=== PATIENT | female | born 1965 | race Caucasian/White ===

== ENCOUNTER 2020-03-28 13:21 | Outpatient (REF) | payer BC, SELFPAY | END 2020-03-28 13:22 | disposition home or self-care (01) | LOC: HO.MANLNP 13:21 | PROVIDERS: PCP Physician Assistant; Visit Provider Physician Assistant | DX: R30.9 Painful micturition, unspecified (principal) | CPT/HCPCS: 87086 ==

== ENCOUNTER 2020-03-29 08:31 | Outpatient (REF) | payer BC, SELFPAY ==
[2020-03-29 11:09] LABS: MANUAL DIFF FLAG NO
[2020-03-29 11:11] LABS: Basophils Percent Auto 0.3 % (0-2); Eosinophils Absolute Auto 0.2 X10*3/uL (0.0-0.4); Eosinophils Percent Auto 2.1 % (0-4); Hematocrit 39.6 % (37-47); Hemoglobin 13.2 g/dl (12.0-16.0); Imm Gran Abs Auto 0.03 X10*3/uL (0.00-0.03); Imm Gran Pct Auto 0.4 % (0.0-0.4); Lymphocytes Absolute Auto 2.2 X10*3/uL (1.2-4.9); Mean Corpuscular HGB Conc 33.3 g/dl (31.0-35.0); Mean Corpuscular Hemoglobin 29.5 pg (27.0-33.0); Mean Corpuscular Volume 88.6 fL (80-98); Monocytes Absolute Auto 0.4 X10*3/uL (0.1-1.2); Monocytes Percent Auto 4.8 % (2-11); Neutrophils Percent Auto 64.4 % (45-73); Platelet Count 238 X10*3/uL (160-400); Red Blood Count 4.47 X10*6/uL (4.20-5.50); Red Cell Distribution Width 12.9 % (11.0-16.0); White Blood Count 7.7 X10*3/uL (4.8-10.8)
[2020-03-29 11:56] LABS: Alanine Aminotransferase 16 U/L (0-31); Albumin Level 4.4 g/dL (3.5-5.0); Alkaline Phosphatase 87 U/L (39-117); Anion Gap 14 (12-20); Aspartate Amino Transferase 13 U/L (5-31); Bilirubin Total 0.5 mg/dL (0.0-1.0); Blood Urea Nitrogen 14 mg/dL (9-16); Calcium 9.3 mg/dL (8.4-10.2); Carbon Dioxide 27 mmol/L (22-29); Chloride 104 mmol/L (96-108); Cholesterol 244 mg/dL; Estimated Glomerular Filt Rate > 60; Glucose Fasting 126 mg/dL (60-99); HDL Cholesterol 45 mg/dL; LDL Cholesterol Calculated 175 mg/dl; Potassium 4.6 mmol/l (3.3-5.1); Sodium 140 mmol/L (135-145); Total Protein 7.1 g/dL (6.5-8.0); Triglycerides 120 mg/dL
[2020-03-29 12:19] LABS: Free T4 (Free Thyroxine) 0.92 ng/dL (0.71-1.85); Thyroid Stimulating Hormone 3.21 mIU/mL (0.32-4.0)
== END 2020-03-29 08:32 | disposition home or self-care (01) ==
LOC: HO.MANLDS 08:31
PROVIDERS: PCP Physician Assistant; Visit Provider Physician Assistant
DX: Z00.00 Encounter for general adult medical examination without abnormal findings (principal); Z13.6 Encounter for screening for cardiovascular disorders
CPT/HCPCS: 36415; 80053; 80061; 84439; 84443; 85025

== ENCOUNTER 2020-06-30 14:26 | Outpatient (REF) | payer BC, SELFPAY ==
[2020-06-30 18:18] LABS: MANUAL DIFF FLAG NO
[2020-06-30 18:20] LABS: Basophils Percent Auto 0.2 % (0-2); Eosinophils Percent Auto 0.4 % (0-4); Hematocrit 39.7 % (37-47); Hemoglobin 13.3 g/dl (12.0-16.0); Imm Gran Abs Auto 0.03 X10*3/uL (0.00-0.03); Imm Gran Pct Auto 0.3 % (0.0-0.4); Lymphocytes Absolute Auto 2.3 X10*3/uL (1.2-4.9); Lymphocytes Percent Auto 21.6 % (20-40); Mean Corpuscular HGB Conc 33.5 g/dl (31.0-35.0); Mean Corpuscular Hemoglobin 30.4 pg (27.0-33.0); Mean Corpuscular Volume 90.6 fL (80-98); Mean Platelet Volume 10.8 fL (9.4-12.3); Monocytes Absolute Auto 0.5 X10*3/uL (0.1-1.2); Monocytes Percent Auto 4.3 % (2-11); Neutrophils Absolute Auto 7.9 X10*3/uL (2.0-8.3); Neutrophils Percent Auto 73.2 % (45-73); Platelet Count 221 X10*3/uL (160-400); Red Blood Count 4.38 X10*6/uL (4.20-5.50); Red Cell Distribution Width 12.7 % (11.0-16.0); White Blood Count 10.8 X10*3/uL (4.8-10.8)
[2020-06-30 18:46] LABS: Alanine Aminotransferase 15 U/L (0-31); Albumin Level 4.6 g/dL (3.5-5.0); Alkaline Phosphatase 85 U/L (39-117); Anion Gap 13 (12-20); Aspartate Amino Transferase 17 U/L (5-31); Bilirubin Total 0.7 mg/dL (0.0-1.0); Blood Urea Nitrogen 19 mg/dL (9-16); Calcium 9.3 mg/dL (8.4-10.2); Carbon Dioxide 27 mmol/L (22-29); Chloride 104 mmol/L (96-108); Estimated Glomerular Filt Rate > 60; Glucose Random 91 mg/dL (60-115); Potassium 4.3 mmol/l (3.3-5.1); Sodium 140 mmol/L (135-145); Total Protein 7.4 g/dL (6.5-8.0)
[2020-06-30 19:07] LABS: Free T4 (Free Thyroxine) 0.96 ng/dL (0.71-1.85); Thyroid Stimulating Hormone 2.93 uIU/mL (0.32-4.0)
== END 2020-06-30 14:27 | disposition home or self-care (01) ==
LOC: HO.MANLDS 14:26
PROVIDERS: PCP Internal Medicine; Visit Provider Physician Assistant
DX: E03.9 Hypothyroidism, unspecified (principal)
CPT/HCPCS: 36415; 80053; 84439; 84443; 85025

== ENCOUNTER 2022-01-07 14:11 | Outpatient (REF) | payer SELFPAY ==
[2022-01-07 17:23] LABS: MANUAL DIFF FLAG NO
[2022-01-07 17:36] LABS: Basophils Percent Auto 0.5 % (0-2); Eosinophils Absolute Auto 0.2 X10*3/uL (0.0-0.4); Eosinophils Percent Auto 2.6 % (0-4); Hematocrit 42.5 % (37.0-47.0); Hemoglobin 14.1 g/dl (12.0-16.0); Imm Gran Abs Auto 0.02 X10*3/uL (0.00-0.03); Imm Gran Pct Auto 0.2 % (0.0-0.4); Lymphocytes Absolute Auto 2.6 X10*3/uL (1.2-4.9); Lymphocytes Percent Auto 30.5 % (20-40); Mean Corpuscular HGB Conc 33.2 g/dl (31.0-35.0); Mean Corpuscular Hemoglobin 28.8 pg (27.0-33.0); Mean Corpuscular Volume 86.7 fL (80.0-98.0); Mean Platelet Volume 10.1 fL (9.4-12.3); Monocytes Absolute Auto 0.5 X10*3/uL (0.1-1.2); Monocytes Percent Auto 6.3 % (2-11); Neutrophils Percent Auto 59.9 % (45-73); Platelet Count 275 X10*3/uL (160-400); White Blood Count 8.4 X10*3/uL (4.8-10.8)
[2022-01-07 17:45] LABS: Alanine Aminotransferase 24 U/L (0-31); Albumin Level 4.6 g/dL (3.5-5.0); Alkaline Phosphatase 88 U/L (39-117); Anion Gap 13 (12-20); Aspartate Amino Transferase 16 U/L (5-31); Bilirubin Total 0.3 mg/dL (0.0-1.0); Blood Urea Nitrogen 18 mg/dL (9-16); Calcium 9.4 mg/dL (8.4-10.2); Carbon Dioxide 26 mmol/L (22-29); Chloride 106 mmol/L (96-108); Estimated Glomerular Filt Rate 57; Glucose Random 117 mg/dL (60-115); Potassium 4.1 mmol/L (3.3-5.1); Sodium 141 mmol/L (135-145); Total Protein 7.5 g/dL (6.5-8.0)
[2022-01-07 18:07] LABS: Free T4 (Free Thyroxine) 0.88 ng/dL (0.71-1.85); Thyroid Stimulating Hormone 4.16 uIU/mL (0.32-4.0); Vitamin D 25-OH Total 18.9 ng/mL (>30)
== END 2022-01-07 14:12 | disposition home or self-care (01) ==
LOC: HO.MANLDS 14:11
PROVIDERS: Visit Provider Internal Medicine
DX: Z00.00 Encounter for general adult medical examination without abnormal findings (principal)
CPT/HCPCS: 36415; 80053; 82306; 84439; 84443; 85025

== ENCOUNTER 2025-01-18 09:36 | Outpatient (REF) | payer OTHER, SELFPAY ==
--- OUTSIDE RECORDS SUMMARY | 2025-01-18 10:17 | XMS_ITS | Encounter Summary ---
Author Organization [facility] Address [address] [place] [id number] Phone Care Team Providers Care Educational Program Assistant Name Role Phone Magan Rowe DO Unavailable Dolly Ye ASSEMBLER CAMPER Unavailable Franny Watkins ASSEMBLER CAMPER Unavailable Natasha Spence PA-C Primary Care Provider Bigda, Magan A DO Unavailable Bigda, Magan A DO Unavailable Bigda, Magan A DO Primary Care Provider [phone] Bigda, Magan A DO Unavailable Bigda, Magan A DO Primary Care Provider [phone] Reason for Referral * MRI/CAT Scan - Closed Specialty Diagnoses / Procedures Referred By Mainor alvarez Referred To Contact Radiology Diagnoses Other specified dorsopathies, cervical region Procedures MRI Cervical Spine Janette Rdz PA Phone: tel: fax: Referral ID Status Reason Start Date Expiration Date Visits Re quested Visits Authorized [id number] Closed 01/22/2021 01/22/2022 1 1 Encounter Details Date Type Department Care Team (Late st Contact Info) Description 01/22/2021 Ancillary Orders Virtual Department [address] [place] [address] Janette Rdz PA [address] [place] [address] [place] [address] Other specified dorsopathies, cervical region Social History Tobacco Use Types Packs/Day Years Used Date Smoking Tobacco: Former Smokeless Tobacco: Never Alcohol Use Standard Drinks/Week Comments Yes 0 (1 standard drink = 0.6 oz pur e alcohol) very rare Comments No Sex and Gender Information Value Date Recorded Sex Assigned at Not on file Legal Sex Female 9:39 PM EDT Gender Identity Not on file Sexual Orientation Not on file documented as of this encounter Plan of Treatment Not on file documented as of this encounter Results * MRI CERVICAL SPINE (NEURO) FOCUS WITH CONTRAST (01/30/2021 11:14 AM EDT) Anatomical Region Laterality Modality C-spine Magnetic Resonan ce 01/30/2021 12:1 9 PM EDT Impressions 01/30/2021 1:07 PM EDT 1.Slightly limited study as no axial slices through the cervical spine were provided. 2.At C6-C7, there is a redemonstrated disc bulge, asymmetric versus the right and with disc extrusion towards the right. At least mild neuroforaminal narrowing, not well characterized on this study. No ongoing annular tear identified. 3.Redemonstrated thoracic syrinx, starting at the level of T2 and extending off of the field of view (i.e., past the T5 vertebral body, measuring up to 1 mm in diameter. Narrative 01/30/2021 1:07 PM EDT MRI CERVICAL SPINE (NEURO) FOCUS WITH CONTRAST TECHNIQUE: Multi-sequence, multi-planar MRI of the cervical spine was performed with and without intravenous contrast. COMPARISON: MRI of the cervical spine without contrast from 01/07/2021. FINDINGS: Limitations: Evaluation of the cervical spine slightly limited as no axial plane images were provided. CERVICAL SPINE: Vertebrae: Mild anterior wedging and endplate spurring from C4 to C6. Disc spaces are preserved. No malalignment. No destructive or suspicious bone lesions. No cerebellar tonsil herniation. Spinal Cord: No spinal cord compression. Redemonstrated thoracic syrinx seen, starting at the level of T2 and extending off of the field of view (i.e., past the T5 vertebral body, measuring up to 1 mm in diameter. Contrast: No abnormal enhancement. Soft Tissue: No prevertebral edema, mass or fluid collection. Findings by level: C2-C3: No neuroforaminal narrowing or spinal canal stenosis. C3-C4: No neuroforaminal narrowing or spinal canal stenosis. C4-C5: No neuroforaminal narrowing or spinal canal stenosis. C5-C6: Degenerative disc disease. No neuroforaminal narrowing or spinal canal stenosis. C6-C7: Redemonstrated broad-based disc bulge, asymmetric towards the right, and with redemonstrated disc extrusion towards the right (2:12). At least mild neuroforaminal narrowing, not well characterized given the lack of axial slices. No annular tear seen on this study. C7-T1: No neuroforaminal narrowing or spinal canal stenosis. Procedure Note Jayro Zimmer MD - 01/30/2021 MRI CERVICAL SPINE (NEURO) FOCUS WITH CONTRAST TECHNIQUE: Multi-sequence, multi-planar MRI of the cervical spine was performed withand without intravenous contrast. COMPARISON: MRI of the cervical spine without contrast from 01/07/2021. FINDINGS: Limitations: Evaluation of the cervical spine slightly limited as no axialplane images were provided. CERVICAL SPINE: Vertebrae: Mild anterior wedging and endplate spurring from C4 to C6. Discspaces are preserved. No malalignment. No destructive or suspicious bonelesions. No cerebellar tonsil herniation. Spinal Cord: No spinal cord compression. Redemonstrated thoracic syrinxseen, starting at the level of T2 and extending off of the field of view(i.e., past the T5 vertebral body, measuring up to 1 mm in diameter. Contrast: No abnormal enhancement. Soft Tissue: No prevertebral edema, mass or fluid collection. Findings by level: C2-C3: No neuroforaminal narrowing or spinal canal stenosis. C3-C4: No neuroforaminal narrowing or spinal canal stenosis. C4-C5: No neuroforaminal narrowing or spinal canal stenosis. C5-C6: Degenerative disc disease. No neuroforaminal narrowing or spinalcanal stenosis. C6-C7: Redemonstrated broad-based disc bulge, asymmetric towards theright, and with redemonstrated disc extrusion towards the right (2:12). Atleast mild neuroforaminal narrowing, not well characterized given the lackof axial slices. No annular tear seen on this study. C7-T1: No neuroforaminal narrowing or spinal canal stenosis. IMPRESSION: 1.Slightly limited study as no axial slices through the cervical spinewere provided. 2.At C6-C7, there is a redemonstrated disc bulge, asymmetric versus theright and with disc extrusion towards the right. At least mildneuroforaminal narrowing, not well characterized on this study. No ongoingannular tear identified. 3.Redemonstrated thoracic syrinx, starting at the level of T2 andextending off of the field of view (i.e., past the T5 vertebral body,measuring up to 1 mm in diameter. Janette EVERETT IMG MR XSPECIALTY Final Res ult documented in this encounter Visit Diagnoses Diagnosis Other specified dorsopathies, cervical region Other specified dorsopathies, cervical region documented in this encounter Care Teams Educational Program Assistant Relationship Specialty Start Date End Date September, GLADIS [address] [place] [address] PCP - General Unknown Provider Specialty 05/13/18 03/21/22 Magan Rowe DO [address] [place] [address] PCP - General Internal Medicine 03/22/22 08/14/24 Magan Rowe DO [address] [place] [address] [email or web address] PCP - General Internal Medicine 08/15/24 Magan Rowe DO [address] [place] [address] [email or web address] Historical LMR Provider 03/29/17 06/16/21 Dolly Ye, ASSEMBLER CAMPER [address] [place] [address] [email or web address] Historical LMR Provider 03/29/17 2 Franny Watkins NP [address] [place] [id number] Historical LMR Provider 03/29/17 2 Magan Rowe DO [address] [place] [address] Insurance Assigned Provider 05/14/20 11/17/21 Magan Rowe DO [address] [place] [address] Insurance Assigned Provider 03/16/22 07/13/22 Magan Rowe DO [address] [place] [address] Insurance Assigned Provider 11/15/23 documented as of this encounter Additional Source Comments The information contained in this document represents components of the legal health record. It is not the complete legal health record.[facility]
[2025-01-18 14:15] LABS: Folate 8.5 ng/mL (> or = 4.0); Vitamin B12 538 pg/mL (200-900)
[2025-01-18 14:23] LABS: Anion Gap 11 (12-20); Free T4 (Free Thyroxine) 0.90 ng/dL (0.71-1.85); Thyroid Stimulating Hormone 2.87 uIU/mL (0.32-4.0)
[2025-01-18 14:28] LABS: Alanine Aminotransferase 23 U/L (0-31); Albumin Level 4.5 g/dL (3.5-5.0); Alkaline Phosphatase 75 U/L (39-117); Aspartate Amino Transferase 22 U/L (5-31); Blood Urea Nitrogen 23 mg/dL (9-16); Calcium 9.4 mg/dL (8.4-10.2); Carbon Dioxide 27 mmol/L (22-29); Chloride 107 mmol/L (96-108); Cholesterol 296 mg/dL (<200); Estimated Glomerular Filt Rate > 60; HDL Cholesterol 54 mg/dL (>40); Potassium 4.2 mmol/L (3.3-5.1); Sodium 141 mmol/L (135-145); Total Protein 7.3 g/dL (6.5-8.0); Triglycerides 171 mg/dL (<150)
== END 2025-01-18 09:37 | disposition home or self-care (01) ==
LOC: HO.MANLDS 09:36
PROVIDERS: Visit Provider Physician Assistant
DX: E78.2 Mixed hyperlipidemia (principal); E03.8 Other specified hypothyroidism; R53.83 Other fatigue
CPT/HCPCS: 36415; 80053; 80061; 82306; 82607; 82746; 84439; 84443; 84445; 86376